=== PATIENT | female | born 1985 | race American Indian/Alaskan Native ===

== ENCOUNTER 2019-05-26 15:03 | Emergency (ER) | payer OTHER ==
[2019-05-26 15:35] VITALS: BP 136/83
--- NOTE | 2019-05-26 15:43 | Event Note ---
ED Screening Note Date of service: 05/26/19 Time: 15:41 ED Screening Note: 34 y o fe male presents ankle pain in crutches states cast too tight causing discoloration of feet This initial assessment/diagnostic orders/clinical plan/treatment(s) is/are subject to change based on patients health status, clinical progression and re- assessment by fellow clinical providers in the ED. Further treatment and workup at subsequent clinical providers discretion. Patient/guardian urged not to elope from the ED as their condition may be serious if not clinically assessed and managed. Initial orders include: xr
--- NOTE | 2019-05-26 16:43 | XRay Report ---
RIGHT ANKLE, 3 VIEWS INDICATION / CLINICAL INFORMATION: pain. Recent known fracture COMPARISON: None available. FINDINGS: There is diffuse soft tissue swelling of the ankle, more severe laterally. There is a minimally displ aced oblique fracture through the distal fibular metaphysis with extension into the distal tibiofibul ar joint. Ankle mortise alignment is maintained. IMPRESSION: 1. Minimally displaced oblique fracture through the distal fibular metaphysis. 2. Prominent soft tissue swelling laterally. Signer Name: Jacy Cho MD Signed: 05/26/2019 4:39 PM Workstation Name: [id number]
--- NOTE | 2019-05-26 16:44 | XRay Report ---
RIGHT FOOT 2 VIEWS INDICATION / CLINICAL INFORMATION: pain COMPARISON: None available. FINDINGS: BONES / JOINT(S): There is a fracture of the lateral malleolus. No significant arthritis. SOFT TISSUES: No significant abnormality. ADDITIONAL FINDINGS: None. Signer Name: Jerry Escoto MD Signed: 05/26/2019 4:40 PM Workstation Name: [id number]
--- NOTE | 2019-05-26 17:42 | Emergency Department Report ---
ED Recheck HPI - General Chief Complaint: Extremity Problem,Nontraumatic Stated Complaint: (R) ANKLE PAIN Time Seen by Provider: 05/26/19 15:30 Source: patient Mode of arrival: Ambulatory Limitations: No Limitations - History of Present Illness Initial Comments: 34 YO DEAF PT COMES TO ER CO THE CAST ON HER LEG IS HURTING AND SHE WANTS IT OFF. PLACED AT ANOTHER FACILITY. ON TIME OF MY EXAM RN HAD TAKEN CAST OFF. DP PT PALP PLUS 2 RAPID CAP REFILL MINIMAL SOFT TISSUE SWELLING Complaint: wound re-check ED Review of Systems ROS: Stated complaint: (R) ANKLE PAIN Other details as noted in HPI Comment: All other systems reviewed and negative ED Past Medical Hx - Past Medical History Previous Medical History?: Yes Additional medical history: deaf - Family History Family history: no significant - Social History Smoking Status: Current Every Day Smoker Substance Use Type: Marijuana ED Physical Exam - General Limitations: No Limitations General appearance: alert - Head Head exam: Present: normocephalic - Eye Eye exam: Present: normal appearance - ENT ENT exam: Present: normal exam - Neck Neck exam: Present: normal inspection - Respiratory Respiratory exam: Present: normal lung sounds bilaterally - Cardiovascular Cardiovascular Exam: Present: regular rate - GI/Abdominal GI/Abdominal exam: Present: soft - Rectal Rectal exam: Present: deferred - Extremities Exam Extremities exam: Present: normal inspection - Back Exam Back exam: Present: normal inspection, full ROM - Neurological Exam Neurological exam: Present: alert ED Course Vital Signs 05/26/19 15:30 Temperature 98.4 F Pulse Rate 85 Respiratory 18 Rate Blood Pressure 136/83 O2 Sat by Pulse 100 Oximetry ED Recheck [facility] - Core Measures Measure Exclusions: not indicated - Differential Diagnosis Wound Recheck - Medical Decision Making XRAY NOTED CAST REPLACED SHORT LEG POSTERIOR NEUROVASC INTACT BEFORE AND AFTER SPLINT PLACED PT EDUCATED DC HOME WITH ORTHO FOLLOW UP Vital Signs 05/26/19 15:30 Temperature 98.4 F Pulse Rate 85 Respiratory 18 Rate Blood Pressure 136/83 O2 Sat by Pulse 100 Oximetry Critical care attestation.: If time is entered above; I have spent that time in minutes in the direct care of this critically ill patient, excluding procedure time. ED Disposition Clinical Impression: Fibula fracture Disposition: DC-01 TO HOME OR SELFCARE Is pt being admited?: No Does the pt Need Aspirin: No Condition: Stable Additional Instructions: LEAVE CAST ON FOLLOW UP WITH DR MARCUS REFERRAL BELOW TO BE SURE YOUR LEG HEALS PROPERLY MOTRIN OR TYLENOL FOR PAIN USE YOUR CRUTCHES DO NOT WALK ON LEG Referrals: HIEU MARCUS MD [Staff Physician] - 3-5 Days Time of Disposition: 17:41
== END 2019-05-26 18:28 | disposition home or self-care (01) ==
LOC: ED 15:03
DX: S82.401A Unspecified fracture of shaft of right fibula, initial encounter for closed fracture (principal); F17.200 Nicotine dependence, unspecified, uncomplicated; F12.10 Cannabis abuse, uncomplicated; Y04.8XXA Assault by other bodily force, initial encounter; Y93.89 Activity, other specified; Y92.89 Other specified places as the place of occurrence of the external cause; Y99.8 Other external cause status

== ENCOUNTER 2019-09-04 18:06 | Emergency (ER) | payer OTHER ==
--- NOTE | 2019-09-04 19:14 | Event Note ---
ED Screening Note ED Screening Note: pt presents with a sore throat that began 4 days ago pain with swallowing states feels like throat is swollen she denies any fever no sick contacts PMHx deaf, otherwise no other PMHx no allergies to meds LNMP: 08/05/19, denies possibility of written on paper This initial assessment/diagnostic orders/clinical plan/treatment(s) is/are subject to change based on patients health status, clinical progression and re- assessment by fellow clinical providers in the ED. Further treatment and workup at subsequent clinical providers discretion. Patient/guardian urged not to elope from the ED as their condition may be serious if not clinically assessed and managed.
[2019-09-04 19:16] VITALS: BP 128/76
[2019-09-04] MEDS ORDERED: LIDOCAINE VISCOUS 2% 15 ML ORAL LIQD PO ONE (20:47)
--- NOTE | 2019-09-04 20:51 | Emergency Department Report ---
HPI - General Chief Complaint: Sore Throat Time Seen by Provider: 09/04/19 19:08 - HPI HPI: Room 42 The patient is a 34-year-old female presenting with chief complaint of sore throat. Patient states she is swollen and painful throat for the past her days. Patient states the pain keeps her from eating. Patient denies history of fever or sick contacts. Patient missed an occasional cough but denies rhinorrhea. ED Past Medical Hx - Past Medical History Previous Medical History?: Yes Additional medical history: deaf/ Hearing Impaired - Surgical History Past Surgical History?: No - Family History Family history: no significant - Social History Smoking Status: Never Smoker Substance Use Type: None - Medications Home Medications: Home Medications Medication Instructions Recorded Confirmed Last Taken Type Amoxicillin [Amoxicillin TAB] 875 mg PO BID #14 tablet 09/04/19 Unknown Rx HYDROcodone/APAP 5-325 [Scheller 1 - 2 each PO Q6HR PRN #14 tablet 09/04/19 Unkn own Rx 5/325] Ibuprofen [Motrin 800 MG tab] 800 mg PO Q8HR PRN #20 tablet 09/04/19 Unknown Rx ED Review of Systems ROS: Stated complaint: THROAT SWELLING Other details as noted in HPI Constitutional: denies: fever Eyes: denies: eye pain ENT: throat pain Respiratory: cough Cardiovascular: denies: chest pain Endocrine: no symptoms reported Gastrointestinal: denies: abdominal pain Genitourinary: denies: dysuria Musculoskeletal: denies: back pain Neurological: denies: headache Physical Exam - Physical Exam Vital Signs: Vital Signs 09/04/19 19:10 Temperature 98 F Pulse Rate 76 Respiratory 18 Rate Blood Pressure 128/76 O2 Sat by Pulse 99 Oximetry Physical Exam: GENERAL: The patient is well-developed well-nourished female sitting in chair not appearing to be in acute distress. [] HEENT: Normocephalic. Atraumatic. Extraocular motions are intact. Uvula midline. No exudates seen NECK: Supple. No meningitic signs are noted. There is tender cervical adenopathy noted. There is no stridor CHEST/LUNGS: There is no respiratory distress noted. SKIN: There is no rash. There is no edema. There is no diaphoresis. NEURO: The patient is awake, alert, and oriented. The patient is cooperative. MUSCULOSKELETAL: There is no evidence of acute injury. ED Course Vital Signs 09/04/19 19:10 Temperature 98 F Pulse Rate 76 Respiratory 18 Rate Blood Pressure 128/76 O2 Sat by Pulse 99 Oximetry - Reevaluation(s) Reevaluation #1: 09/04/19 21:29 The patient has eloped. A voicemail was left via her answering service to inform her her prescription and paperwork will be left with the charge nurse should she choose to return ED Medical Decision Making - Radiology Data Radiology results: image reviewed (lateral soft tissue neck x-ray) interpreted by me: Lateral soft tissue neck x-ray-no prevertebral swelling, no evidence of epiglottitis - Differential Diagnosis pharyngitis, tonsillitis, epiglottitis, retropharyngeal abscess Critical care attestation.: If time is entered above; I have spent that time in minutes in the direct care of this critically ill patient, excluding procedure time. ED Disposition Clinical Impression: Acute pharyngitis Disposition: TO HOME OR SELFCARE Is pt being admited?: No Does the pt Need Aspirin: No Condition: Stable Instructions: Pharyngitis (ED) Prescriptions: Amoxicillin [Amoxicillin TAB] 875 mg PO BID #14 tablet Ibuprofen [Motrin 800 MG tab] 800 mg PO Q8HR PRN #20 tablet PRN Reason: Pain, Moderate (4-6) HYDROcodone/APAP 5-325 [Scheller 5/325] 1 - 2 each PO Q6HR PRN #14 tablet PRN Reason: Pain Referrals: USMAN ESQUEDA MD [Staff Physician] - 3-5 Days [facility] [Outside] - 3-5 Days Time of Disposition: 21:29 (patient eloped prior to radiologist's read of x-ray)
--- NOTE | 2019-09-04 21:39 | XRay Report ---
Soft tissue neck-2 views INDICATION: sore throat. COMPARISON: None. IMPRESSION: No acute osseous or soft tissue abnormality. Normal alignment. No significant DJD or soft tissue abnormality. No radiopaque foreign body. Signer Name: Norris Boothe MD Signed: 09/04/2019 9:34 PM Workstation Name: [id number]
== END 2019-09-04 21:34 | disposition left against medical advice (07) ==
LOC: ED 18:06
DX: J02.9 Acute pharyngitis, unspecified (principal); Z79.2 Long term (current) use of antibiotics; Z79.1 Long term (current) use of non-steroidal anti-inflammatories (NSAID); Z79.899 Other long term (current) drug therapy
CPT/HCPCS: 70360